=== PATIENT | male | born 1940 | race Caucasian/White ===

== ENCOUNTER 2019-04-11 14:26 | Inpatient (IN) | payer MEDICARE, BC ==
[~2019-04-11] VITALS: Ht 185.4 cm; Wt 53.5 kg
[~2019-04-11 14:26] MED LIST: LISI2.5T90; SIMV5TAB2
--- NOTE | 2019-04-11 14:43 | NUR ---
BIBRA 878 FROM HOME C/O CONSTIPATION AND RECTAL PAIN FOR 2 DAYS. REPORTS RECTAL BLEEDING, BRIGHT RED BLOOD. STATES NOT HAVING HAD BM FOR "WEEKS" AND HAVING DIFFICULTY SITTING DOWN. PT IS AOX3, VSS, RR EVEN AND UNLABORED ON RA. SKIN INTACT. NO ACUTE DISTRESS NOTED. MADE COMFORTABLE AND READY FOR EVAL.
--- NOTE | 2019-04-11 15:35 | NUR ---
DR WAGNER AT BEDSIDE FOR EVAL
--- NOTE | 2019-04-11 15:49 | NUR ---
IV LINE ESTABLISHED, BLOOD DRAWN AND SENT TO STAT LAB. PT COREEN WELL. LABORER PRESTRESSED CONCRETE AT BEDSIDE FOR EKG
[2019-04-11 15:50] LABS: BASOPHILS # (AUTO) 0.1 /CMM (0.0-0.2); BASOPHILS % (AUTO) 0.8 % (0.0-2.0); EOSINOPHILS % (AUTO) 0.4 % (0.0-6.0); HEMATOCRIT 38 % (39-51); HEMOGLOBIN 12.2 g/dL (13.5-17.5); LYMPHOCYTES # (AUTO) 1.7 /CMM (0.8-4.8); LYMPHOCYTES % (AUTO) 20.7 % (20.0-44.0); MEAN CORPUSCULAR HGB CONC 32 g/dl (31.0-36.0); MEAN CORPUSCULAR VOLUME 90 fL (80-96); MONOCYTES # (AUTO) 0.9 /CMM (0.1-1.30); NEUTROPHILS # (AUTO) 5.6 /CMM (1.8-8.9); NEUTROPHILS % (AUTO) 67.1 % (43.0-81.0); PLATELET COUNT (AUTO) 192 /CMM (150-450); WHITE BLOOD COUNT (AUTO) 8.3 K/uL (4.3-11.0)
[2019-04-11] MEDS ORDERED: IV NS 0.9% 1,000 ML BAG IV ONE (16:00)
[2019-04-11 16:04] LABS: CARBON DIOXIDE 35 mmol/L (21-32); CHLORIDE 101 mmol/L (98-107); CREATININE 1.5 mg/dL (0.6-1.3); GLUCOSE 125 mg/dL (74-106); POTASSIUM 4.3 mmol/L (3.5-5.1); SODIUM SERUM 141 mmol/L (136-145); UREA NITROGEN, BLOOD 42 mg/dL (7-18)
[2019-04-11] MEDS ORDERED: ASPI-1152 PO (16:15)
[2019-04-11] MEDS ORDERED: MULT-447 PO (16:15)
[2019-04-11 16:21] LABS: ALANINE AMINOTRANSFERASE 14 U/L (12-78); ALBUMIN 3.2 g/dL (3.4-5.0); ALKALINE PHOSPHATASE 79 U/L (46-116); ASPARTATE AMINOTRANSFERASE 19 U/L (15-37); BILIRUBIN,DIRECT 0.2 mg/dL (0.0-0.2); BILIRUBIN,TOTAL 0.5 mg/dL (0.2-1.0); LIPASE 254 U/L (73-393); TOTAL PROTEIN, SERUM 7.2 g/dL (6.4-8.2)
[2019-04-11] MEDS ORDERED: IV NS 0.9% 250 ML IV ONE (16:22)
[2019-04-11] MEDS ORDERED: CT SWABBABLE VALVE TRANS SET 1 EA INFUS.SET MC ONE (16:22)
[2019-04-11] MEDS ORDERED: IOHEXOL-300 100 ML VIAL IV ONE (16:22)
[2019-04-11] MEDS ORDERED: IV NS 0.9% 1,000 ML IV ONE (16:30)
--- NOTE | 2019-04-11 16:30 | NUR ---
PT TAKEN TO RADIOLOGY VIA [facility]
[2019-04-11 16:44] LABS: CALCIUM, SERUM 10.8 mg/dL (8.5-10.1)
[2019-04-11] MEDS ORDERED: MAGNESIUM HYDROXIDE 30 ML UDC PO PRN (17:00)
[2019-04-11] MEDS ORDERED: ONDANSETRON HCL/PF 4 MG/2 ML VIAL IVP PRN (17:00)
[2019-04-11] MEDS ORDERED: Z GUARD REMEDY 2 OZ OINT TP PRN (17:00)
[2019-04-11] MEDS ORDERED: HYDROCODONE/APAP 5/325MG 1 EACH TABLET PO PRN (17:00)
[2019-04-11] MEDS ORDERED: ACETAMINOPHEN 325 MG TABLET PO PRN (17:00)
[2019-04-11] MEDS ORDERED: ZOLPIDEM TARTRATE 5 MG TABLET PO PRN (17:00)
[2019-04-11] MEDS ORDERED: MAG HYDROX/AL HYDROX/SIMETH 30 ML UDC PO PRN (17:00)
--- NOTE | 2019-04-11 17:15 | NUR ---
CALLED NURSING SUP FOR M/S BED.
--- NOTE | 2019-04-11 17:34 | NUR ---
NURSING SUP GAVE [phone].
[2019-04-11 17:35] LABS: APPEARANCE,URINE Clear (CLEAR); BILIRUBIN,URINE SMALL (NEGATIVE); BLOOD, URINE Trace-lysed Ery/uL (NEGATIVE); COLOR,URINE Dark (YELLOW); KETONES,URINE Trace (NEGATIVE); LEUKOCYTE ESTERASE ,URINE Negative (NEGATIVE); NITRITE, URINE Negative (NEGATIVE); PH,URINE 6.5 (5.0-8.0); PROTEIN,URINE 30 mg/dl (NEGATIVE); UGLUCOSE Negative (NEGATIVE)
--- NOTE | 2019-04-11 18:24 | NUR ---
REPORT GIVEN TO LEWIS FRANKS FOR
[2019-04-11 18:32] LABS: BACTERIA,URINE 1+ /HPF (None Seen); HYALINE CASTS, URINE Few /LPF (None Seen); MUCUS,URINE Few /LPF (None Seen); SQUAMOUS EPITHELIAL CELL,UR 0-2 /HPF (None Seen); URIC ACID CRYSTALS,URINE Few /HPF (None Seen)
--- NOTE | 2019-04-11 18:50 | NUR ---
[facility]
--- NOTE | 2019-04-11 19:09 | NUR ---
MS/RN NOTES RECEIVED REPORT FROM VASILIY ER NURSE CAME TO THE UNIT AT 1905, WILL ENDORSED TO [employer] SALES MANAGER FOR MICHELLE.
--- NOTE | 2019-04-11 19:55 | NUR ---
RN NOTES ADMISSION PROCESS INITIATED, PATIENTS' BROTHER AT BEDSIDE AT THIS TIME, ALL NEEDS ATTENDED, SAFETY MEASURES INPLACE, ASPIRATION PRECAUTION EMPHASIZE, PAIN ON THE RECTAL AREA IS TOLERABLE AT THIS TIME PER PATIENT. WILL MONITOR ACCORDINGLY.
[2019-04-11] MEDS: IV D5/ 0.9% NACL 1,000 ML IV PRN (20:48)
[2019-04-11 21:35] VITALS: BP 129/73
--- NOTE | 2019-04-12 06:49 | NUR ---
RN NOTES ABLE TO REST AND SLEPT AT INTERVALS, KEPT CLEAN WARM DRY AND COMFORTABLE, SAFETY MEASURES IN PLACE, CALL LIGHT WITHIN EASY REACH, ASPIRATION PRECAUTION EMPHASIZED, DENIES SEVERE PAIN AT THIS TIME, ALL NEEDS ATTENDED AND MET, NOTED WITH BLOODY WITH SMALL RAISIN STOOL X 2 THROUGHOUT THE SHIFT. RESTING CALMLY AT THIS TIME, WILL ENDORSED TO AM NURSE FOR CONTINUITY OF CARE.
--- NOTE | 2019-04-12 07:15 | NUR ---
RN OPENING NOTES RECEIVED PATIENT IN BED RESTING. A/OX 2-3, ABLE TO MAKE NEEDS KNOWN. NOT IN ANY FORM OF DISTRESS. NO SOB. DENIED PAIN OR DISCOMFORT AT THIS TIME. IV ACCESS INTACT AND PATENT. KEPT PATIENT SAFE AND COMFORTABLE. BED IN LOW/LOCKED POSITION, SIDERAILS UPX2, CALL LIGHT IN REACH. WILL MONITOR ACCORDINGLY.
[2019-04-12 07:18] LABS: BASOPHILS % (AUTO) 0.3 % (0.0-2.0); EOSINOPHILS % (AUTO) 1.4 % (0.0-6.0); HEMATOCRIT 37 % (39-51); HEMOGLOBIN 11.9 g/dL (13.5-17.5); LYMPHOCYTES # (AUTO) 2.2 /CMM (0.8-4.8); MEAN CORPUSCULAR HGB CONC 32 g/dl (31.0-36.0); MEAN CORPUSCULAR VOLUME 90 fL (80-96); MONOCYTES # (AUTO) 0.7 /CMM (0.1-1.30); MONOCYTES % (AUTO) 9.5 % (2.0-12.0); NEUTROPHILS % (AUTO) 57.8 % (43.0-81.0); PLATELET COUNT (AUTO) 183 /CMM (150-450); RED BLOOD CELL COUNT(AUTO) 4.12 MIL/uL (4.5-6.0); WHITE BLOOD COUNT (AUTO) 6.9 K/uL (4.3-11.0)
[2019-04-12 07:30] VITALS: BP 118/67
[2019-04-12 07:31] LABS: THYROID STIMULATING HORMONE 2.538 uIU/mL (0.358-3.74)
[2019-04-12 07:37] LABS: CALCIUM, SERUM 9.7 mg/dL (8.5-10.1); CREATININE 1.1 mg/dL (0.6-1.3); MAGNESIUM 1.7 mg/dL (1.8-2.4); POTASSIUM 3.7 mmol/L (3.5-5.1)
[2019-04-12] MEDS: PANTOPRAZOLE 40 MG TABLET.DR PO SCH (07:50)
[2019-04-12] MEDS ORDERED: K PHOS NEUTRAL 250 MG TABLET PO ONE (11:30)
[2019-04-12] MEDS: Magnesium 1GM/D5W 100ML PREMIX 100 ML IV SCH ×2 (12:21→14:26)
[2019-04-12] MEDS: ENSURE CLEAR 237 ML LIQUID (MIX BERRY) PO SCH ×2 (12:28→17:17)
--- NOTE | 2019-04-12 15:14 | NUR ---
RN NOTES DR GILLIAM AT BEDSIDE FOR ONCO CONSULT. PER MD, PLAN IS COLONOSCOPY TOMORROW AND BIOPSY ON SUNDAY. VERIFIED WITH DR BADILLO, WILL DO COLONOSCOPY TOMORROW. MD ORDERED NPO AFTER MIDNIGHT, AND 1 GALLON OF GOLYTELY.
[2019-04-12] MEDS ORDERED: PEG 3350/NA SULF,BICARB,CL/KCL 4,000 ML BOTTLE PO ONE (15:30)
[2019-04-12 16:00] VITALS: BP 115/55
[2019-04-12] MEDS: IV D5/ 0.9% NACL 1,000 ML IV PRN (19:14)
--- NOTE | 2019-04-12 19:30 | NUR ---
RN CLOSING NOTES PATIENT IN STABLE CONDITION. ALL NEEDS ATTENDED AND PROVIDED. ALL DUE MEDS GIVEN ORDERED. KEPT PATIENT SAFE AND COMFORTABLE. BED IN LOW/LOCKED POSITION, SIDERAILS UPX2, CALL LIGHT IN REACH. ENDORSED ACCORDINGLY.
--- NOTE | 2019-04-12 19:45 | NUR ---
RN OPENING NOTES RECEIVED REPORT FROM DAYSHIFT LEWIS FREEDMAN. FOUND Pt AWAKE, RESTING IN BED. A/OX3, VERBAL, ABLE TO MAKE NEEDS KNOWN. IV ACCESS ON LAC #22G. PER REPORT Pt IS SCHEDULED FOR A COLONOSCOPY TOMORROW AND WILL BE NPO AFTER MN TONIGHT. Pt HAS STARTED DRINKING GOLYTLY. SAFETY MEASURES IN PLACE. BED LOW, LOCKED, HOB ELEVATED, SIDE RAILS UP, CALL LIGHT AND BEDSIDE TABLE WITHIN REACH. WILL CONTINUE TO MONITOR Pt's CONDITION AND SAFETY THROUGHOUT THE NIGHT.
[2019-04-12 20:00] VITALS: BP 133/74
[2019-04-13] VITALS (7 sets, daily range): BP systolic 108–135; BP diastolic 52–75
[2019-04-13] MEDS: ENSURE CLEAR 237 ML LIQUID (MIX BERRY) PO SCH ×3 (07:30→17:30)
[2019-04-13] MEDS: PANTOPRAZOLE 40 MG TABLET.DR PO SCH (07:30)
--- NOTE | 2019-04-13 07:30 | NUR ---
RN NOTES Pt's IV WAS PULLED OUT. Pt REFUSED FOR NEW IV INSERTION. EXPLAINED TO Pt THE IMPORTANCE OF THE IV DURING HIS HOSPITALIZATION, Pt STILL REFUSED FOR NEW IV TO BE PLACED NOW, SAID WE CAN DO A NEW ONE LATER AFTER 0900, BUT FOR NOW HE WANTS TO GET SOME SLEEP SINCE HE HAS BEEN UP ALL NIGHT GOING TO THE BATHROOM DUE TO THE GOLYTELY. ENDORSED TO JALEESA RN THAT Pt REFUSED NEW IV INSERTION AT THIS TIME.
--- NOTE | 2019-04-13 07:33 | NUR ---
MS RN OPENING NOTES PATIENT IN BED RESTING COMFORTABLY. PATIENT IN NO ACUTE DISTRESS. NO SOB NOTED. PATIENT BREATHING IS EVEN AND UNLABORED. PATIENT REFUSING MORNING LABS AND PULLED OUT IV LINE. PATIENT REFUSING TO HAVE LABS AT THIS TIME. PATIENT REFUSING TO HAVE IV LINE RESTARTED. EDUCATED RISKS VS BENEFITS. PATIENT CONTINUED TO REFUSE. PATIENT MAINTAIN NPO STATUS FOR COLONOSCOPY IN AM. PATIENT BED IS LOCKED AND IN LOWEST POSITION. CALL LIGHT WITHIN REACH. BED ALARM IS ON. SAFETY PRECAUTIONS IN PLACE. WILL CONTINUE TO MONITOR.
--- NOTE | 2019-04-13 07:40 | NUR ---
RN CLOSING NOTES NO SIGNIFICANT CHANGES IN Pt's CONDITION. Pt IS RESTING IN BED. NO S/S OF ACUTE DISTRESS OR SOB NOTED DURING THE NIGHT. ALL NEEDS MET AND ATTENDED TO. SAFETY MEASURES IN PLACE. ENDORSED TO DAYSHIFT RN FOR Pt's MICHELLE.
[2019-04-13 10:58] LABS: BASOPHILS % (AUTO) 0.3 % (0.0-2.0); EOSINOPHILS % (AUTO) 1.1 % (0.0-6.0); HEMATOCRIT 42 % (39-51); HEMOGLOBIN 13.6 g/dL (13.5-17.5); LYMPHOCYTES # (AUTO) 2.1 /CMM (0.8-4.8); LYMPHOCYTES % (AUTO) 25.2 % (20.0-44.0); MEAN CORPUSCULAR HGB CONC 32 g/dl (31.0-36.0); MEAN CORPUSCULAR VOLUME 90 fL (80-96); MONOCYTES # (AUTO) 0.7 /CMM (0.1-1.30); MONOCYTES % (AUTO) 8.7 % (2.0-12.0); NEUTROPHILS # (AUTO) 5.4 /CMM (1.8-8.9); NEUTROPHILS % (AUTO) 64.7 % (43.0-81.0); PLATELET COUNT (AUTO) 212 /CMM (150-450); RED BLOOD CELL COUNT(AUTO) 4.67 MIL/uL (4.5-6.0); WHITE BLOOD COUNT (AUTO) 8.4 K/uL (4.3-11.0)
[2019-04-13 11:11] LABS: CALCIUM, SERUM 9.6 mg/dL (8.5-10.1); CREATININE 1.1 mg/dL (0.6-1.3); PHOSPHORUS 2.3 mg/dL (2.5-4.9); POTASSIUM 3.6 mmol/L (3.5-5.1)
[2019-04-13 11:24] LABS: THYROID STIMULATING HORMONE 3.604 uIU/mL (0.358-3.74)
[2019-04-13] MEDS: IV D5/ 0.9% NACL 1,000 ML IV PRN (14:12)
--- NOTE | 2019-04-13 14:13 | NUR ---
MS RN NOTE PATIENT IV PATENT AND INTACT LEFT AC 20 GAUGE RUNNING AT IV D5NS AT 75ML/HR.
[2019-04-13] MEDS ORDERED: MIDAZOLAM HCL 2 MG/2ML VIAL ONE (14:47)
--- NOTE | 2019-04-13 18:47 | NUR ---
MS RN CLOSING NOTE PATIENT IN BED RESTING COMFORTABLY. PATIENT IN NO ACUTE DISTRESS. NO SOB NOTED. PATIENT BREATHING IS EVEN AND UNLABORED. PATIENT KEPT CLEAN AND DRY THROUGH OUT SHIFT. PATIENT INSTRUCTED TO BE NPO AFTER MIDNIGHT FOR BIOPSY IN AM. PATIENT ACKNOWLEDGED AND UNDERSTOOD INSTRUCTIONS. PATIENT BED IS LOCKED AND IN LOWEST POSITION. CALL LIGHT WITHIN REACH. BED ALARM IS ON. SAFETY PRECAUTIONS IN PLACE. WILL ENDORSE CARE TO PM SHIFT FOR MICHELLE.
--- NOTE | 2019-04-13 19:40 | NUR ---
RN OPENING NOTES RECEIVED REPORT [facility]. FOUND Pt AWAKE, RESTING IN BED, WATCHING TV. Pt IS A/OX2, VERY FORGETFUL, BUT IS VERBAL & ABLE TO MAKE NEEDS KNOWN. IV ACCESS ON LAC #20G. Pt IS REFUSING TO HAVE IVF ON DURING THE NIGHT. Pt IS SCHEDULED FOR A RECTAL BIOPSY TOMORROW MORNING AT 0730; [facility], Pt SIGNED CONSENT FORM & PLACED IN CHART. SAFETY MEASURES IN PLACE. BED LOW, LOCKED, HOB ELEVATED, SIDE RAILS UP, CALL LIGHT AND BEDSIDE TABLE WITHIN REACH. WILL CONTINUE TO MONITOR Pt's CONDITION AND SAFETY THROUGHOUT THE NIGHT.
--- NOTE | 2019-04-13 23:57 | NUR ---
RN NOTES Pt IS STILL REFUSING TO HAVE THE IVF CONNECTED DURING THE NIGHT, SAYS IT BOTHERS HIM AND GETS TANGLED UP. Pt ALSO REFUSED FOR PICTURES TO BE TAKEN. SAID HE WISHES TO BE LEFT ALONE AND WANTS TO GET SOME REST.
--- NOTE | 2019-04-14 06:30 | NUR ---
RN CLOSING NOTES NO SIGNIFICANT CHANGES IN Pt's CONDITION. Pt IS RESTING IN BED. NO S/S OF ACUTE DISTRESS OR SOB NOTED DURING THE NIGHT. ALL NEEDS MET AND ATTENDED TO. Pt HAS REMAINED NPO SINCE EMELI LAGUNA SCHEDULED FOR RECTAL BIOPSY TODAY @ 0730. SAFETY MEASURES IN PLACE. WILL ENDORSE TO DAYSHIFT RN FOR Pt's MICHELLE.
[2019-04-14] MEDS: PANTOPRAZOLE 40 MG TABLET.DR PO SCH (06:33)
[2019-04-14 06:42] LABS: BASOPHILS % (AUTO) 0.4 % (0.0-2.0); HEMATOCRIT 34 % (39-51); LYMPHOCYTES # (AUTO) 1.8 /CMM (0.8-4.8); MEAN CORPUSCULAR HGB CONC 33 g/dl (31.0-36.0); MEAN CORPUSCULAR VOLUME 90 fL (80-96); MONOCYTES # (AUTO) 0.6 /CMM (0.1-1.30); MONOCYTES % (AUTO) 9.3 % (2.0-12.0); NEUTROPHILS # (AUTO) 3.9 /CMM (1.8-8.9); NEUTROPHILS % (AUTO) 59.3 % (43.0-81.0); PLATELET COUNT (AUTO) 190 /CMM (150-450); RED BLOOD CELL COUNT(AUTO) 3.76 MIL/uL (4.5-6.0); WHITE BLOOD COUNT (AUTO) 6.6 K/uL (4.3-11.0)
--- NOTE | 2019-04-14 07:42 | NUR ---
M/S RN NOTES PATIENT LEFT FOR SURGERY, REPORT GIVEN BY LEWIS YIP.
[2019-04-14 07:49] LABS: ALBUMIN 2.4 g/dL (3.4-5.0); BILIRUBIN,TOTAL 0.4 mg/dL (0.2-1.0); CALCIUM, SERUM 8.9 mg/dL (8.5-10.1); MAGNESIUM 1.7 mg/dL (1.8-2.4); PHOSPHORUS 2.7 mg/dL (2.5-4.9); POTASSIUM 4.4 mmol/L (3.5-5.1); TOTAL PROTEIN, SERUM 6.1 g/dL (6.4-8.2)
[2019-04-14] MEDS ORDERED: METRONIDAZOLE 500MG/ NS 100ML 100 ML IV ONE (08:02)
[2019-04-14] MEDS ORDERED: CELLULOSE,OXIDIZED 1 PKT EACH MC ONE (08:06)
[2019-04-14] MEDS ORDERED: BUPIVACAINE 0.5 % PF 150 MG/30 ML VIAL ONE (08:07)
[2019-04-14] MEDS: ENSURE CLEAR 237 ML LIQUID (MIX BERRY) PO SCH ×3 (08:22→17:28)
--- NOTE | 2019-04-14 09:10 | NUR ---
WOUND CARE: ATTEMPTED TO SEE PT THIS AM BUT PT WAS OFF UNIT IN O.R. WILL SEE PT PT CONDITION PERMITS.
--- NOTE | 2019-04-14 09:17 | NUR ---
M/S RN NOTES PATIENT CAME BACK FROM SURGERY, NO ACUTE DISTRESS NOTED, VSS. SKIN WARM TO TOUCH, DRESSING ON RECTUM CLEAN AND INTACT. PATIENT'S NEEDS ATTENDED. MD ORDERS NOTED AND CARRIED OUT. BED ON LOWEST LOCKED POSITION, CALL LIGHT WITHIN REACH. WILL CONTINUE TO MONITOR.
[2019-04-14] MEDS ORDERED: BISACODYL (5 MG) 5 MG TABLET.DR PO PRN (10:00)
[2019-04-14] MEDS: Magnesium 1GM/D5W 100ML PREMIX 100 ML IV SCH ×2 (10:01→11:05)
--- NOTE | 2019-04-14 12:44 | NUR ---
WOUND CARE CONSULT: PT PRESENTS WITH SACRAL INTACT DEEP TISSUE INJURY, LEFT WAIST SKIN TEAR, LEFT SHOULDER DRY ABRASION, ALL PRESENT ON ADMISSION. RECOMMENDATIONS MADE FOR SKIN PROTECTION AND WOUND CARE. DISCUSSED WITH NURSING STAFF. NYLA ISOFLEX LOW AIRLOSS BED TO BE PLACED. ISOFLEX LOW AIRLOSS BED TO BE PLACED. WILL SEE PRN. [place] IN AGREEMENT WITH PLAN OF CARE. PT IS EXTREMELY THIN AND BONY. DIETARY CONSULT IN PLACE. CURRENT BRI SCORE IS 14. Addendum: 04/14/19 at 1246 by BENNIE VALVERDE WNDNU Amended: Links added.
[2019-04-14] MEDS ORDERED: MEPERIDINE HCL/PF 100 MG/ML DISP.SYRIN IV ONE (13:32)
[2019-04-14 16:00] VITALS: BP 113/52
--- NOTE | 2019-04-14 18:50 | NUR ---
M/S RN NOTES PATIENT AWAKE IN BED, NO RESPIRATORY DISTRESS, NO C/O PAIN AT THIS TIME. BELONGINGS LIST ACCOUNTED FOR AND SIGNED. PATIENT'S IV REMOVED AND APPLIED PRESSURE DRESSING. PATIENT'S NEEDS ATTENDED, BED ON LOWEST LOCKED POSITION, CALL LIGHT WITHIN REACH. WILL ENDORSE DISCHARGE ORDERS TO ONCOMING NURSE.
--- NOTE | 2019-04-14 19:05 | NUR ---
rn ms notes received patient in bed awake alert and oriented x 2-3 with episodes of forgetfulness, denies pain or discomfort at this time, respirations even and unlabored with equal rise and fall, oriented to staff and call light and kept within reach, safety precautions in place low bed and locked, patient is scheduled for discharge. room 105 a report given to edelmira nova at [facility]. patient aware all discharge paper work complete , belongings with patient. remains stable.
[2019-04-14 20:00] VITALS: BP 118/60
--- NOTE | 2019-04-14 20:05 | NUR ---
rn ms notes patient left unit for discharge in stable condition , id band removed, iv site removed, belongings with patient, exitcare with patient,picked up by stephanie. discharged in stable condition.
[2019-04-15 08:11] LABS: HIV SCRN 4G wRFX Non Reactive (Non Reactive)
== END 2019-04-14 20:05 | DRG 374 ==
LOC: ER 14:29 → MED 17:42 → MEDSG2 19:06
PROC: 0DJD8ZZ Inspection of Lower Intestinal Tract, Via Natural or Artificial Opening Endoscopic (ICD-10-PCS; principal; 2019-04-13)
PROC: 0DBP8ZX Excision of Rectum, Via Natural or Artificial Opening Endoscopic, Diagnostic (ICD-10-PCS; 2019-04-14)
DX: C21.0 Malignant neoplasm of anus, unspecified (principal); E43 Unspecified severe protein-calorie malnutrition; N17.0 Acute kidney failure with tubular necrosis; K62.5 Hemorrhage of anus and rectum; J90 Pleural effusion, not elsewhere classified; E83.52 Hypercalcemia; N18.9 Chronic kidney disease, unspecified; E88.09 Other disorders of plasma-protein metabolism, not elsewhere classified; F41.9 Anxiety disorder, unspecified; Z90.49 Acquired absence of other specified parts of digestive tract; Z79.82 Long term (current) use of aspirin; I25.10 Atherosclerotic heart disease of native coronary artery without angina pectoris; D64.9 Anemia, unspecified; E83.39 Other disorders of phosphorus metabolism; K59.00 Constipation, unspecified; E83.42 Hypomagnesemia; K76.0 Fatty (change of) liver, not elsewhere classified; K76.89 Other specified diseases of liver; K82.8 Other specified diseases of gallbladder; Z82.49 Family history of ischemic heart disease and other diseases of the circulatory system; K57.30 Diverticulosis of large intestine without perforation or abscess without bleeding
CPT/HCPCS: 36415; 70450-TC; 71045-TC; 71250-TC; 76700-TC; 80048-TC; 80053-TC; 80061-TC; 80076-TC; 81000-TC; 82378; 82728-TC; 83540-TC; 83690-TC; 83735-TC; 84100-TC; 84443-TC; 84484-TC; 85025-TC; 85610-TC; 85730-TC; 86850-TC; 87081-TC; 88305-TC; 93307-TC; A6253; G0378; J0690; J1885; J2175; J2250; J2704; J3475; J3490; J7030; J7042; J7050; J7120; Q9967

== ENCOUNTER 2019-04-21 14:31 | Emergency (ER) | payer MEDICARE, BC ==
[~2019-04-21] VITALS: Ht 188 cm; Wt 59.0 kg
[~2019-04-21 14:31] MED LIST changes: +ASPI-1152 PO; -LISI2.5T90; +MULT-447 PO; -SIMV5TAB2
--- NOTE | 2019-04-21 14:50 | NUR ---
BLOOD IN STOOL X4 HRS, RECTAL PAIN 5/10. PATIENT A/OX2-3, BREATHING EVEN AND UNLABORED, NO SOB NOTED. ATTACHED TO THE [employer] HELPER.
[2019-04-21 15:49] LABS: BASOPHILS # (AUTO) 0.1 /CMM (0.0-0.2); BASOPHILS % (AUTO) 0.8 % (0.0-2.0); EOSINOPHILS % (AUTO) 3.4 % (0.0-6.0); HEMATOCRIT 30 % (39-51); HEMOGLOBIN 9.8 g/dL (13.5-17.5); LYMPHOCYTES # (AUTO) 1.8 /CMM (0.8-4.8); LYMPHOCYTES % (AUTO) 22.9 % (20.0-44.0); MEAN CORPUSCULAR HGB CONC 33 g/dl (31.0-36.0); MEAN CORPUSCULAR VOLUME 91 fL (80-96); MONOCYTES # (AUTO) 0.8 /CMM (0.1-1.30); MONOCYTES % (AUTO) 10.4 % (2.0-12.0); NEUTROPHILS # (AUTO) 4.8 /CMM (1.8-8.9); NEUTROPHILS % (AUTO) 62.5 % (43.0-81.0); PLATELET COUNT (AUTO) 341 /CMM (150-450); RED BLOOD CELL COUNT(AUTO) 3.29 MIL/uL (4.5-6.0); WHITE BLOOD COUNT (AUTO) 7.7 K/uL (4.3-11.0)
[2019-04-21 16:06] LABS: CALCIUM, SERUM 8.6 mg/dL (8.5-10.1); CARBON DIOXIDE 32 mmol/L (21-32); CHLORIDE 101 mmol/L (98-107); CREATININE 0.9 mg/dL (0.6-1.3); GLUCOSE 74 mg/dL (74-106); POTASSIUM 3.9 mmol/L (3.5-5.1); SODIUM SERUM 137 mmol/L (136-145); UREA NITROGEN, BLOOD 16 mg/dL (7-18)
[2019-04-21 16:09] LABS: ALANINE AMINOTRANSFERASE 54 U/L (12-78); ALBUMIN 2.3 g/dL (3.4-5.0); ALKALINE PHOSPHATASE 109 U/L (46-116); ASPARTATE AMINOTRANSFERASE 38 U/L (15-37); BILIRUBIN,DIRECT 0.1 mg/dL (0.0-0.2); BILIRUBIN,TOTAL 0.2 mg/dL (0.2-1.0); LIPASE 156 U/L (73-393); TOTAL PROTEIN, SERUM 6.4 g/dL (6.4-8.2)
--- NOTE | 2019-04-21 16:32 | NUR ---
CALLED MELIDA NICOLAS DOUGHNUT ICER WAS PAGED.
--- NOTE | 2019-04-21 17:07 | NUR ---
CALLED [facility] FOR [place] ETA OF 184 WAS GIVEN.
[2019-04-21 17:36] LABS: OCCULT BLOOD STOOL POSITIVE (NEGATIVE)
--- NOTE | 2019-04-21 18:10 | NUR ---
PATIENT A/OX3, PROVIDED FOOD TRAY AND TOLERATED WELL.
--- NOTE | 2019-04-21 18:56 | NUR ---
Report given to Greg SAUCEDO at [facility]. IV removed. Catheter intact and site benign. Pressure and 4x4 applied to site. No bleeding noted. Patient discharged to home in stable condition. Written and verbal after care instructions given. Patient verbalizes understanding of instruction. Report given to [employer], and patient.
[2019-04-21 19:03] VITALS: BP 140/77
== END 2019-04-21 19:04 ==
LOC: ER 14:42
DX: K92.2 Gastrointestinal hemorrhage, unspecified (principal); F41.9 Anxiety disorder, unspecified; I10 Essential (primary) hypertension; Z90.89 Acquired absence of other organs; Z98.890 Other specified postprocedural states; Z79.82 Long term (current) use of aspirin
CPT/HCPCS: 36415; 71045-TC; 80048-TC; 80076-TC; 82272-TC; 83690-TC; 84484-TC; 85025-TC; 85730-TC; 86850-TC; 87081-TC

== ENCOUNTER 2019-06-05 14:40 | Emergency (ER) | payer MEDICARE, BC ==
[~2019-06-05] VITALS: Ht 188 cm; Wt 74.8 kg
--- NOTE | 2019-06-05 14:46 | NUR ---
BONI NEWELL FROM [facility] FOR LOW HEMOGLOBIN 7.2 , TO ER BED 10, HOOKED TO MONITOR, CHANGED TO HOSP GOWN, WARM BLANKET PROVIDED, PATIENT AOx2 , BREATHING EVEN AND UNLABORED. AWAITING MD LINK.
--- NOTE | 2019-06-05 15:08 | NUR ---
DR FLORIAN AT BEDSIDE
[2019-06-05] MEDS ORDERED: AMIN30LI2 PO (15:17)
[2019-06-05] MEDS ORDERED: BISA5TAB10 PO (15:17)
[2019-06-05] MEDS ORDERED: MAG30ORA PO (15:17)
[2019-06-05] MEDS ORDERED: ACET-2605 PO (15:17)
[2019-06-05] MEDS ORDERED: PANT40TA2 PO (15:17)
[2019-06-05] MEDS ORDERED: FERR325T23 PO (15:17)
[2019-06-05] MEDS ORDERED: ACET-868 PO ×2 (15:17)
[2019-06-05] MEDS ORDERED: MAGN400O6 PO (15:17)
[2019-06-05] MEDS ORDERED: ASPI-1169 PO (15:17)
[2019-06-05] MEDS ORDERED: TYL2T PO (15:17)
[2019-06-05 15:33] LABS: BASOPHILS # (AUTO) 0.1 /CMM (0.0-0.2); BASOPHILS % (AUTO) 0.7 % (0.0-2.0); EOSINOPHILS % (AUTO) 3.3 % (0.0-6.0); HEMATOCRIT 21 % (39-51); LYMPHOCYTES # (AUTO) 2.7 /CMM (0.8-4.8); LYMPHOCYTES % (AUTO) 21.2 % (20.0-44.0); MEAN CORPUSCULAR HGB CONC 32 g/dl (31.0-36.0); MEAN CORPUSCULAR VOLUME 88 fL (80-96); MONOCYTES % (AUTO) 7.8 % (2.0-12.0); NEUTROPHILS # (AUTO) 8.6 /CMM (1.8-8.9); PLATELET COUNT (AUTO) 508 /CMM (150-450); RED BLOOD CELL COUNT(AUTO) 2.42 MIL/uL (4.5-6.0); WHITE BLOOD COUNT (AUTO) 12.8 K/uL (4.3-11.0)
--- NOTE | 2019-06-05 16:04 | NUR ---
HEMOGLOBIN IS 6.8
[2019-06-05 16:05] LABS: HEMOGLOBIN 6.8 g/dL (13.5-17.5)
[2019-06-05 16:29] LABS: ALBUMIN 2.5 g/dL (3.4-5.0); BILIRUBIN,TOTAL 0.1 mg/dL (0.2-1.0); CALCIUM, SERUM 8.5 mg/dL (8.5-10.1); CREATININE 1.2 mg/dL (0.6-1.3); POTASSIUM 4.1 mmol/L (3.5-5.1); TOTAL PROTEIN, SERUM 7.4 g/dL (6.4-8.2)
[2019-06-05 16:37] LABS: EOSINOPHILS % (MANUAL) 1 % (0-4); LYMPHOCYTES % (MANUAL) 13 % (16-48); MONOCYTES % (MANUAL) 8 % (0-11.0); NEUTROPHILS % (MANUAL) 78 (42-76)
--- NOTE | 2019-06-05 17:39 | NUR ---
RAC 18G IV PERIPHERAL LINE INFILTRATED, STARTED NEW IVP AT LAC 20G
--- NOTE | 2019-06-05 17:41 | NUR ---
PATIENT SIGNED CONSENT FOR BLOOD TRANSFUSION
--- NOTE | 2019-06-05 19:00 | NUR ---
PRE BLOOD TRANSFUSION VS TAKEN AND RECORDED. VSS. STARTED BLOOD TRANSFUSION AT 80ML/HR.
--- NOTE | 2019-06-05 19:15 | NUR ---
STAYED WITH PATIENT FOR 15 MIN, NO ADVERSE SIDE EFFECTS OF BLOOD TRANSFUSION NOTED. VITAL SIGNS TAKEN AND RECORDED
--- NOTE | 2019-06-05 19:17 | NUR ---
REPORT GIVEN TO MATT SAUCEDO FOR MICHELLE
--- NOTE | 2019-06-05 19:59 | NUR ---
BLOOD TRANSFUSION IN PROGRESS
--- NOTE | 2019-06-05 20:08 | NUR ---
NO ACUTE DISTRESS NOTED. PT HAS NO MEDICAL COMPLAINTS AT THIS TIME
[2019-06-05] MEDS ORDERED: IV NS 0.9% 1,000 ML IV PRN (21:02)
[2019-06-05] MEDS ORDERED: CT SWABBABLE VALVE TRANS SET 1 EA INFUS.SET MC ONE (21:20)
[2019-06-05] MEDS ORDERED: IV NS 0.9% 250 ML IV ONE (21:20)
[2019-06-05] MEDS ORDERED: IOHEXOL-300 100 ML VIAL IV ONE (21:20)
[2019-06-05] MEDS ORDERED: ACETAMINOPHEN 325 MG TABLET PO PRN (21:30)
[2019-06-05] MEDS ORDERED: MAGNESIUM HYDROXIDE 30 ML UDC PO PRN (21:30)
[2019-06-05] MEDS ORDERED: MORPHINE SULFATE INJ 2 MG/ML DISP.SYRIN IV PRN (21:30)
[2019-06-05] MEDS ORDERED: ZOLPIDEM TARTRATE 5 MG TABLET PO PRN (21:30)
[2019-06-05] MEDS ORDERED: MAG HYDROX/AL HYDROX/SIMETH 30 ML UDC PO PRN (21:30)
[2019-06-05] MEDS ORDERED: HYDROCODONE/APAP 5/325MG 1 EACH TABLET PO PRN (21:30)
[2019-06-05] MEDS ORDERED: Z GUARD REMEDY 2 OZ OINT TP PRN (21:30)
[2019-06-05] MEDS ORDERED: ONDANSETRON HCL/PF 4 MG/2 ML VIAL IVP PRN (21:30)
--- NOTE | 2019-06-05 21:44 | NUR ---
# FOR REPORT [facility]. [phone]
[2019-06-05 21:45] VITALS: BP 141/73
--- NOTE | 2019-06-05 22:03 | NUR ---
REPORT GIVEN TO LEWIS ESCUDERO
--- NOTE | 2019-06-05 22:11 | NUR ---
[facility] CALLED FOR TRANSPORT ETA 1HR TRIP# [id number]
--- NOTE | 2019-06-05 23:15 | NUR ---
REPORT GIVEN TO EMS,PT STABLE FOR TRANSFER
[2019-06-06] MEDS ORDERED: PANTOPRAZOLE 40 MG VIAL IV SCH (09:00)
== END 2019-06-05 23:17 | disposition short-term general hospital (02) ==
LOC: ER 14:44
DX: D64.9 Anemia, unspecified (principal); K92.1 Melena; I10 Essential (primary) hypertension; Z90.89 Acquired absence of other organs; Z79.899 Other long term (current) drug therapy; Z79.82 Long term (current) use of aspirin
CPT/HCPCS: 36415; 80053; 85025; 85730; 86850; 86921; 99285; J7040; J7050; Q9967; 74178; 87081-TC; P9016-BL